=== PATIENT | male | born 1945 | race Caucasian/White ===

== ENCOUNTER 2021-07-31 10:31 | Inpatient (IN) | payer MEDICARE, OTHER ==
[~2021-07-31] VITALS: Ht 190.5 cm; Wt 77.1 kg
[2021-07-31 10:37] VITALS: BP 113/92
[2021-07-31] MEDS ORDERED: ADVAIR HFA 230M12 GM INH (10:41)
[2021-07-31] MEDS ORDERED: MEDROL4 M1 PO (10:42)
[2021-07-31] MEDS ORDERED: VENTOLIN HFA 1818 GM INH (10:42)
[2021-07-31] MEDS ORDERED: COZAAR 25 MG TA25 M2 PO (10:42)
[2021-07-31] MEDS ORDERED: DOXYCYCLINE 10100 MG PO (10:43)
[2021-07-31] MEDS ORDERED: VITAMIN B-1100 M2 PO (10:43)
[2021-07-31] MEDS ORDERED: C-10001000 MG PO (10:44)
[2021-07-31] MEDS ORDERED: ZINC SULFATE PO (10:44)
[2021-07-31 11:13] LABS: ABSOLUTE BASOPHILS 0.2 thou/uL (0.0-0.2); ABSOLUTE EOSINOPHILS 0.1 thou/uL (0.0-0.7); ABSOLUTE LYMPHOCYTES 2.7 thou/uL (0.8-5.3); ABSOLUTE MONOCYTES 1.1 thou/uL (0.0-1.2); ABSOLUTE NEUTROPHILS 8.6 thou/uL (1.6-8.1); BASOPHILS 1.3 %; EOSINOPHILS 0.9 %; HEMATOCRIT 47.2 % (42.0-52.0); HEMOGLOBIN 16.3 gm/dL (14.0-18.0); LYMPHOCYTES 21.1 %; MCH 31.1 pg (26.0-34.0); MCHC 34.6 g/dL (28.0-37.0); MCV 89.8 fL (80.0-100.0); MONOCYTES 8.6 %; NUCLEATED RBCS 0 /100WBC; PLATELET COUNT* 212 thou/uL (150-400); POLYS 68.1 %; RBC 5.25 mil/uL (4.50-6.00); RDW-CV 14.7 % (10.5-14.5); WBC 12.7 thou/uL (4.0-11.0)
[2021-07-31 11:31] LABS: CALCIUM 9.9 mg/dL (8.5-10.1); CREATININE 1.7 mg/dL (0.6-1.3); POTASSIUM 3.9 mmol/L (3.5-5.1)
[2021-07-31 11:47] LABS: TOTAL PROTEIN 8.1 g/dL (6.4-8.2)
--- NOTE | 2021-07-31 14:37 | EKG ---
[place] [address] ELECTROCARDIOGRAM REPORT Name: REEMA MEIER Room: [place] [address] ADM IN [facility].#: [id number] Admission: 07/31/21 Attend Phys: Beny Nova, Discharge: Date of : 41 Date of Service: 07/31/21 [facility] Report #: [id number] THIS REPORT FOR: //name// [facility] ED Test Date: 2021-07-31 Test Time: 10:37:44 Pat Name: REEMA MEIER Department: Room: [facility] Gender: M Plasticator: KUSHAL : 1945 Requested By: Oz Feliciano Order Number: [id number] MD: Dell Buenrostro Measurements Intervals [place] Rate: 81 P: AL: QRS: 56 QRSD: 100 T: 163 QT: 407 QTc: 473 Interpretive Statements Atrial fibrillation Borderline repolarization abnormality Baseline wander in lead(s) II,III,aVF No previous ECG available for comparison Electronically Signed On 07-31-2021 14:37:08 CDT by Dell Buenrostro [email or web address] <ELECTRONICALLY SIGNED> By: Dell Buenrostro MD, [facility] 07/31/21 1437 1037 1037 Dell Buenrostro MD, [facility] /EPI
[2021-07-31 16:04] VITALS: BP 112/70
--- NOTE | 2021-07-31 18:55 | NUR ---
PT TRANSFERRED FROM ER AT APPROX 1717. REPORT GIVEN FROM MARISEL. ASSESSMENT REVIEWED AND AGREED WITH. PT IS A&O X 2-4 AT TIMES AND HAS BEEN NOTED BY FAMILY TO HAVE GREATER CONFUSION, ESPECIALLY AT NIGHT. PER DAUGHTER PT SUNDOWNS FREQUENTLY AND AT TIMES CAN BE MEAN AND CUSS AT OTHERS. DAUGHTER ANSWERED MOST QUESTIONS AND PT WAS GETTING IRRITATED OVER THE MULTIPLE QUESTIONS BEING ASKED. PT INFORMED OF NEED TO USE CALL LIGHT TO GET UP AND WAS REMINDED THE REST OF THE SHIFT. SAFETY MEASURES IN PLACE. PT IS CONTINENT OF B&B. NS INFUSING AT 100MLS/HR. PT WITH NO COMPLAINTS OR CONCERNS VOICED AT THIS TIME.
[2021-07-31 20:00] VITALS: BP 96/62
[2021-08-01 02:39] VITALS: BP 100/60
[2021-08-01 03:40] VITALS: BP 97/57
[2021-08-01 08:03] LABS: ABSOLUTE EOSINOPHILS 0.1 thou/uL (0.0-0.7); ABSOLUTE LYMPHOCYTES 1.9 thou/uL (0.8-5.3); ABSOLUTE MONOCYTES 0.5 thou/uL (0.0-1.2); ABSOLUTE NEUTROPHILS 5.2 thou/uL (1.6-8.1); BASOPHILS 0.3 %; EOSINOPHILS 1.4 %; HEMATOCRIT 41.6 % (42.0-52.0); LYMPHOCYTES 24.7 %; MCH 30.6 pg (26.0-34.0); MCHC 33.6 g/dL (28.0-37.0); MCV 90.9 fL (80.0-100.0); MONOCYTES 6.7 %; MPV 8.9 fl. (7.2-11.1); NUCLEATED RBCS 0 /100WBC; PLATELET COUNT* 148 thou/uL (150-400); POLYS 66.9 %; RBC 4.58 mil/uL (4.50-6.00); RDW-CV 14.2 % (10.5-14.5); WBC 7.9 thou/uL (4.0-11.0)
[2021-08-01 08:20] VITALS: BP 102/65
[2021-08-01 08:23] LABS: CALCIUM 8.3 mg/dL (8.5-10.1); CREATININE 1.4 mg/dL (0.6-1.3); POTASSIUM 3.6 mmol/L (3.5-5.1)
[2021-08-01 12:00] VITALS: BP 108/57
[2021-08-01 16:00] VITALS: BP 108/65
[2021-08-01 19:50] VITALS: BP 94/56
[2021-08-02] VITALS: BP 97/65
--- NOTE | 2021-08-02 05:16 | NUR ---
PATIENT RESPONSIVE TO CARES BUT QUITE GRUMPY AT TIMES AND IS UNHAPPY ABOUT BEING IN THE HOSPITIAL. VITAL SIGNS STABLE. MEDS/ANTIBIOTICS PER ORDER. FALL PRECAUTIONS IN PLACE. CONTINUE TO MONITOR.
[2021-08-02 08:00] VITALS: BP 97/61
[2021-08-02 12:00] VITALS: BP 109/66
[2021-08-02 14:00] LABS: HEMATOCRIT 37.1 % (42.0-52.0); HEMOGLOBIN 12.6 gm/dL (14.0-18.0); MCH 31.2 pg (26.0-34.0); MCV 91.5 fL (80.0-100.0); MPV 9.2 fl. (7.2-11.1); NUCLEATED RBCS 0 /100WBC; PLATELET COUNT* 105 thou/uL (150-400); RBC 4.06 mil/uL (4.50-6.00); RDW-CV 14.3 % (10.5-14.5); WBC 8.9 thou/uL (4.0-11.0)
[2021-08-02 14:10] LABS: ALBUMIN 3.1 g/dL (3.4-5.0); CALCIUM 8.8 mg/dL (8.5-10.1); CREATININE 1.1 mg/dL (0.6-1.3); POTASSIUM 4.1 mmol/L (3.5-5.1); TOTAL BILIRUBIN 1.2 mg/dL (<0.1-1.0); TOTAL PROTEIN 6.1 g/dL (6.4-8.2)
[2021-08-02 14:38] LABS: ABSOLUTE LYMPHOCYTES 0.8 thou/uL (0.8-5.3); ABSOLUTE MONOCYTES 0.4 thou/uL (0.0-1.2); ABSOLUTE NEUTROPHILS 7.7 thou/uL (1.6-8.1); PLATELET ESTIMATE ADEQUATE
[2021-08-02 16:00] VITALS: BP 107/70
[2021-08-02 19:58] VITALS: BP 85/54
[2021-08-03] VITALS: BP 111/76
[2021-08-03 04:00] VITALS: BP 110/66
--- NOTE | 2021-08-03 05:36 | NUR ---
PATIENT HAS REMAINED ALERT AND ORIENTED X 3-4, RESTING QUIETLY ON HOURLY ROUNDS. TURNING SELF. INCONT URINE AT TIMES. SL FOR ABX. FALL PRECAUTIONS IN PLACE. VITAL SIGNS STABLE ON O2 AT 4L/MIN WITH BP SOFT. MRI OF HEAD PLANNED FOR TODAY. CONTINUE TO MONITOR.
[2021-08-03 08:00] VITALS: BP 126/84
[2021-08-03 12:00] VITALS: BP 102/52
--- NOTE | 2021-08-03 14:45 | 2DMMODE ---
[place] [address] 2 D/M-MODE ECHOCARDIOGRAM Name: REEMA MEIER Room: [address] IN [facility]#: [id number] Admission: 07/31/21 Attend Phys: Beny Nova, Discharge: Date of : 41 Date of Service: 08/03/21 1445 Report #: [id number] THIS REPORT FOR: cc: FAM - No family physician/PCP FAM - No family physician/PCP Dell Buenrostro MD [facility] ~ APPROVED REPORT Study performed: 08/03/2021 11:04:05 EXAM: Comprehensive 2D, Doppler, and color-flow Echocardiogram Patient Location: In-Patient Room #: [facility] Status: routine BSA: 2.05 HR: 79 bpm BP: 110/66 mmHg Rhythm: NSR Other Information Study Quality: Good Indications Atrial Fibrillation Dyspnea 2D Dimensions IVSd: 11.15 (7-11mm) LVOT Diam: 21.27 (18-24mm) LVDd: 45.30 mm PWd: 10.24 (7-11mm) Ascending Ao: 37.03 (22-36mm) LVDs: 24.16 (25-40mm) Aortic Root: 40.42 mm Volumes Left Atrial Volume (Systole) LA ESV Index: 42.00 mL/m2 Aortic Valve AoV Peak Sd.: 1.14 m/s AO Peak Gr.: 5.17 mmHg LVOT Max P.90 mmHg AO Mean Gr.: 3.52 mmHg LVOT Mean P.46 mmHg LVOT Max V: 0.99 m/s AO V2 VTI: 22.87 cm LVOT Mean V: 0.75 m/s BING (VTI): 2.76 cm2 LVOT V1 VTI: 17.76 [place] [address] 2 D/M-MODE ECHOCARDIOGRAM Name: REEMA MEIER Room: [address] IN [facility]#: [id number] Admission: 07/31/21 Attend Phys: Beny Nova, Discharge: Date of : 41 Date of Service: 08/03/21 1445 Report #: [id number] AI [place]: 1.07 m/s2 AI PHT: 907.49 ms TDI Lateral E' Sd.: 0.12 m/s Pulmonary Valve PV Peak Sd.: 0.92 m/s PV Peak Gr.: 3.39 mmHg Tricuspid Valve RAP Estimate: 5.00 mmHg TR Peak Gr.: 23.43 mmHg RVSP: 28.00 mmHg PA Pressure: 28.00 mmHg Left Ventricle The left ventricle is normal size. There is normal LV segmental wall motion. There is normal left ventricular wall thickness. Left ventricular systolic function is normal. The left ventricular ejection fraction is within the normal range. LVEF is 65-70%. This study is not technically sufficient to allow evaluation of the LV diastolic function due to atrial fibrillation. Right Ventricle The right ventricle is normal size. The right ventricular systolic function is normal. Pacemaker lead is present in the right ventricle. Atria Left atrium is moderately dilated. The right atrium size is normal. Aortic Valve The aortic valve is normal in structure. Trace aortic regurgitation. There is no aortic valvular stenosis. Mitral Valve The mitral valve is normal in structure. Trace mitral regurgitation. No evidence of mitral valve stenosis. Tricuspid Valve The tricuspid valve is normal in structure. Mild tricuspid regurgitation. No pulmonary hypertension. Pulmonic Valve The pulmonary valve is normal in structure. Trace [place] [address] 2 D/M-MODE ECHOCARDIOGRAM Name: REEMA MEIER Room: [address]#: [id number] Admission: 07/31/21 Attend Phys: Beny Nova, Discharge: Date of : 41 Date of Service: 08/03/21 1445 Report #: [id number] Great Vessels The aortic root is normal in size. IVC is not well visualized. Pericardium There is no pericardial effusion. <Conclusion> LVEF is 65-70%. Left atrium is moderately dilated. <ELECTRONICALLY SIGNED> By: Dell Buenrostro MD, [facility] 08/03/21 1445 1445 1445 Dell Buenrostro MD, FAC /INF
[2021-08-03 16:00] VITALS: BP 99/55
--- NOTE | 2021-08-03 18:34 | NUR ---
PT VERY UPSET THIS AM DUE TO NOT BEING ABLE TO GO HOME. PT ATE HIS BREAFAST HIS DAUGHTER BROUGHT IN FOR HIM. VSS AFEBRILE. PT UP TO THE CHAIR FOR A COUPLE OF HOURS. THEN BACK TOP BED. DAUGHTER MADE A DEAL WITH THE PATIENT SAYING SHE WILL TAKE HIM HOME, AFTER HER SURGERY AND IF HE GETS STRONGER AT REHAB AND DOES WHAT EVERYONE TELLS HIM TO DO. UA SENT TO LAB THIS PM. VSS AFEBRILE. HEART MONITOR READS AFIB WILL CONTINUE TO MONITOR PLAN OF CARE.
[2021-08-03 20:00] VITALS: BP 101/49
[2021-08-03 21:03] LABS: URINE BILIRUBIN NEGATIVE (Negative); URINE BLOOD NEGATIVE (Negative); URINE CLARITY CLEAR; URINE COLOR YELLOW; URINE GLUCOSE-RANDOM NEGATIVE (Negative); URINE KETONES NEGATIVE (Negative); URINE LEUKOCYTES-REFLEX 1+ (Negative); URINE NITRITE-REFLEX NEGATIVE (Negative); URINE PROTEIN NEGATIVE (Negative); URINE SPECIFIC GRAVITY >= 1.030 (1.005-1.030); URINE UROBILINOGEN 0.2 E.U./dl (0.2-1.0)
[2021-08-03 21:11] LABS: BACTERIA-REFLEX 1-9 Few /HPF (None Seen); SQUAMOUS 0-3 Few /LPF (0-3); URINE RBC 0-2 Rare /HPF (0-2); URINE WBC-REFLEX 6-15 Few /HPF (0-5)
[2021-08-03 21:12] LABS: CALCIUM OXALATE 0-3 Few /LPF (None Seen); CASTS None Seen /LPF (None Seen)
[2021-08-04] VITALS: BP 125/64
[2021-08-04 04:00] VITALS: BP 113/61
--- NOTE | 2021-08-04 06:01 | NUR ---
PATIENT SLEPT WELL DURING THIS SHIFT. PT ON O2 @ 4 LITERS PER NC. PT INCONTINENT OF URINE AT TIMES PLUS USES URINAL. PT SALINE LOCKED. 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 PT DENIES NEEDS AT THIS TIME. FREQUENTLY USED ITEMS AND CALL LIGHT WITHIN REACH. SIDERAILS UPX3 AND BED ALARM ON. WILL CONTINUE TO MONITOR.
[2021-08-04 08:00] VITALS: BP 154/90
[2021-08-04 12:00] VITALS: BP 95/49
[2021-08-04 16:00] VITALS: BP 113/56
--- NOTE | 2021-08-04 16:33 | NUR ---
CM COMPLETED THE ASSESSMENT WITH THE PT. PT INDICATED HE LIVES IN [place] AND IS HERE STAYING WITH DTR TEMP. PT PLANS TO RTRN HOME TO [place]. PT HAS WALKER. PT DENIES HX WITH HH OR SNF. PT IS TRANSFERRING TO ARU BED 324 TODAY PER TOSHIA. RN NOTIFIED OF ROOM AND TIME.
--- NOTE | 2021-08-04 17:21 | NUR ---
pt discharged to [facility] rehab unit. saline lock was removed hub intact.
== END 2021-08-04 18:00 | DRG 177 ==
LOC: M.ERS 10:31 → M.2W 13:06 → M.TBA-ER 13:06 → M.2W 16:43
PROVIDERS: Emergency Medicine Emergency Medical Services; ADMIT Internal Medicine; ATTEND Internal Medicine
DX: J15.6 Pneumonia due to other Gram-negative bacteria (principal); J96.01 Acute respiratory failure with hypoxia; G92 Toxic encephalopathy; N17.0 Acute kidney failure with tubular necrosis; F02.81 Dementia in other diseases classified elsewhere, unspecified severity, with behavioral disturbance; Z20.822 Contact with and (suspected) exposure to COVID-19; I10 Essential (primary) hypertension; G30.9 Alzheimer's disease, unspecified; I25.10 Atherosclerotic heart disease of native coronary artery without angina pectoris; Z95.0 Presence of cardiac pacemaker; Z86.16 Personal history of COVID-19; Z95.5 Presence of coronary angioplasty implant and graft; Z95.1 Presence of aortocoronary bypass graft; E86.0 Dehydration

== ENCOUNTER 2021-08-04 16:25 | Inpatient (IN) | payer MEDICARE, OTHER ==
[~2021-08-04] VITALS: Ht 188 cm; Wt 102.4 kg
[~2021-08-04 16:25] MED LIST: ADVAIR HFA 230M12 GM INH; C-10001000 MG PO; COZAAR 25 MG TA25 M2 PO; DOXYCYCLINE 10100 MG PO; MEDROL4 M1 PO; VENTOLIN HFA 1818 GM INH; VITAMIN B-1100 M2 PO; ZINC SULFATE PO
[2021-08-04 19:00] VITALS: BP 104/65
--- NOTE | 2021-08-04 20:40 | NUR ---
REHAB ADMISSION HISTORY/ASSESSMENT COMPLETED. PATIENT VERY HATEFUL, SARCASTIC AND ARGUMENATIVE. ANGRY ABOUT BEING IN THE HOSPITAL. 02 NASAL CANNULA AT 2 LITERS. DISCOLORATION NOTED TO LOWER EXTREMITIES. NO OPEN AREAS OBSERVED. DENIES PAIN. TOOK MEDICATION WHOLE WITH WATER. SNACK RPOVIDED. CALL LIGHT AND URINAL WITHIN REACH.
--- NOTE | 2021-08-05 05:36 | NUR ---
RESTED QUIETLY. HOURLY ROUNDING IN PROGRESS.
[2021-08-05 05:44] LABS: HEMATOCRIT 33.8 % (42.0-52.0); MCH 31.5 pg (26.0-34.0); MCHC 35.5 g/dL (28.0-37.0); MCV 88.8 fL (80.0-100.0); MPV 9.6 fl. (7.2-11.1); RBC 3.81 mil/uL (4.50-6.00); RDW-CV 14.9 % (10.5-14.5); WBC 5.3 thou/uL (4.0-11.0)
[2021-08-05 06:02] LABS: CALCIUM 8.5 mg/dL (8.5-10.1); CREATININE 0.8 mg/dL (0.6-1.3); POTASSIUM 3.5 mmol/L (3.5-5.1)
[2021-08-05 08:00] VITALS: BP 135/83
--- NOTE | 2021-08-05 17:05 | NUR ---
AM ASSESSMENT AND VITAL SIGNS COMPLETED DOCUMENTED. PT WAS VERY UMCOOPERATIVE THIS MORNING, REFUSED TO HAVE THE BED OR CHAIR ALARM AND WAS VERY ARGUMENTATIVE AND SARCASTIC. PT'S DAUGHTER CAME IN EARLY THIS AFTERNOON AND WAS ABLE TO CALM HIM DOWN. PT HAS ADVANCED DEMENTIA AND THIS IS NORMAL BEHAVIOR FOR HIM. FREQUENT OBSERVATION FOR SAFETY.
[2021-08-05 19:00] VITALS: BP 92/48
--- NOTE | 2021-08-06 05:20 | NUR ---
Oriented x 2-3, very quiet. He is withdrawn. He takes his meds without difficulty. Vitals are stable. Denies pain. He has slept well.
[2021-08-06 07:51] VITALS: BP 136/71
[2021-08-06 11:51] LABS: URINE BILIRUBIN NEGATIVE (Negative); URINE BLOOD NEGATIVE (Negative); URINE CLARITY CLEAR; URINE COLOR YELLOW; URINE GLUCOSE-RANDOM NEGATIVE (Negative); URINE KETONES NEGATIVE (Negative); URINE LEUKOCYTES-REFLEX 1+ (Negative); URINE NITRITE-REFLEX NEGATIVE (Negative); URINE PROTEIN NEGATIVE (Negative); URINE SPECIFIC GRAVITY 1.025 (1.005-1.030); URINE UROBILINOGEN 0.2 E.U./dl (0.2-1.0)
[2021-08-06 11:56] LABS: BACTERIA-REFLEX 1-9 Few /HPF (None Seen); SQUAMOUS 0-3 Few /LPF (0-3); URINE RBC 0-2 Rare /HPF (0-2); URINE WBC-REFLEX 6-15 Few /HPF (0-5)
[2021-08-06 11:57] LABS: CASTS None Seen /LPF (None Seen); CRYSTALS None Seen /LPF (None Seen); MUCUS 0-3 Light strn/LPF (None Seen)
--- NOTE | 2021-08-06 13:04 | NUR ---
Nutrition: Pt admitted to rehab with encephalopathy. H/o recent COVID, possible dementia. Consult received for "recent wt loss d/t hospitaliztion." Spoke with pt and family today. Pt ate good BKFST and lunch. He said he lost about 50# recently, but is slowly gaining wt again. Current wt is 225#. Eating regular diet. Doesn't like the food and is having outside food brought in. Albumin 3.1. RD gave pt a menu for alternative ordering - family appreciative. GOALS: no wt loss >2% from 225#, continue good po intake. RD will follow weekly on rehab unit. Mild to low risk.
--- NOTE | 2021-08-06 16:38 | NUR ---
PT UP WITH GAIT BELT AND WALKER. PT DID COMPLETE ALL THERAPY TODAY. DID COLLECT AND SEND UA TO LAB WAITING ON CULTURE. PT COMPLAINED THAT BOTTOM WAS SORE THERE IS A RED AREA, BARRIER CREAM WAS APPLIED, TRIED KEEPING PT ON SIDE. PT HAD COMPLAINT OF HEARTBURN THIS AM AND WAS GIVEN MED, HEARTBURN WAS RESOLVED. DAUGHTER HERE TODAY ASKING ABOUT MRI THAT THE PT REFUSED BEFORE COMING TO REHAB, DR. LACEY WAS CALLED, SPOKE TO THIAGO @ 9:50AM. PT IS RESTING WITH DAUGHTER AT BEDSIDE AND CALL LIGHT IN REACH. FALL PRECAUTIONS IN PLACE.
[2021-08-06 20:12] VITALS: BP 90/53
[2021-08-07 07:46] VITALS: BP 118/75
--- NOTE | 2021-08-07 16:28 | NUR ---
INITIAL ASSESSMENT: PATIENT ADMITTED TO THE [facility] ON 08/04/21 WITH A DIAGNOSIS OF ENCEPHALOPATHY. PT'S DTR ASSIST WITH ASSESSMENT AND INFORMS THAT SHE HAD RECENTLY BROUGHT PT TO HER HOME HERE IN [place] FROM [place]. PREVIOUSLY PT RESIDED AT HOME ALONE IN [place], AND SHE ASSUMES HE HAD TAKEN CARE OF HIMSELF INDEPENDENTLY. SHE REALLY DOESN'T KNOW THEY WERE ASTRANGED. PT USED A WALKER OR CANE FOR MOBILITY. PT HAS 0 HX OF HH OR SNF. CM ORIENTED PT AND DTR TO THE [facility] AND PROCESSES, RESIDENT'S RIGHTS INFO, TEAM CONFRENCE, AND TO THE ROLE OF CM. CM WILL REMAIN AVAILABLE TO ASSIST AND FOLLOW NEEDED.
--- NOTE | 2021-08-07 16:40 | NUR ---
PT WORKED WITH THERAPIES. UP WITH GAIT BELT AND STB ASSIST. REFUSES TO USE WALKER OR CANE. PT VERY IRRITABLE. O2 2L NC. REFUSED PRN MOM TO ASSIST WITH HAVING A STOOL. SPOKE WITH PT'S DAUGHTER, ARMAAN TO GET PACEMAKER INFO. MOLLY IN MRI GIVEN THE PACEMAKER INFO TO CONTACT PT'S RESEARCH EPIDEMIOLOGIST AND PACEMAKER REP FOR MRI. POSSIBLY HAVING MRI ON TUESDAY IF REP IS ABLE TO COME. PACEMAKER PLACED BY DR JACINTO WEST IN [place]. PACE MAKER IS AN [employer]. MODEL NUMBER [id number]. WAS PLACED ON Oct. DENIES PAIN. CALL LIGHT IN REACH. FALL PRECAUTIONS IN PLACE.
[2021-08-07 19:45] VITALS: BP 111/64
[2021-08-08 08:25] VITALS: BP 123/73
--- NOTE | 2021-08-08 17:29 | NUR ---
pt is up with gait belt and walker.pt did have and complete therapy today. pt is on 2L , rt put a humidifier on due to pt having a dry bloody nose. and daughter stated he had one down stairs and it helped. pt did have bm today. pt is set up for MRI Tuesday,daughter brought in his pacemaker card, a copy is has been put in chart. pt is resting with call light in reach and fall precautions in place.
[2021-08-08 20:00] VITALS: BP 86/48
--- NOTE | 2021-08-09 04:40 | NUR ---
ASSUMED PT CARE AT 1930. PT ALERT AND ORIENTED, ALREADY IN BED AT SHIFT CHANGE. DENIES PAIN. TAKES PILLS WHOLE WITH WATER. ON 2L 02 PER NC. TURNED SELF IN BED. Z GUARD TO REDNESS ON BOTTOM. SLEPT WELL OVERNIGHT. NO STOOL THIS SHIFT. CALL LIGHT IN REACH, BED ALARM ON FOR SAFETY. HOURLY ROUNDING IN PROGRESS, WILL CONTINUE TO MONITOR.
[2021-08-09 08:04] VITALS: BP 132/70
[2021-08-09 20:00] VITALS: BP 118/78
[2021-08-10 03:55] LABS: HEMATOCRIT 31.4 % (42.0-52.0); HEMOGLOBIN 10.8 gm/dL (14.0-18.0); MCH 31.1 pg (26.0-34.0); MCHC 34.5 g/dL (28.0-37.0); MPV 8.7 fl. (7.2-11.1); RBC 3.48 mil/uL (4.50-6.00); RDW-CV 15.3 % (10.5-14.5); WBC 4.9 thou/uL (4.0-11.0)
--- NOTE | 2021-08-10 04:20 | NUR ---
ASSUMED PT CARE AT 1930. PT ALERT AND ORIENTED, IN BED AT SHIFT CHANGE. DENIES PAIN. TAKES PILLS WHOLE WITH WATER WITHOUT DIFFICULTY. ON 2L 02 PER NC. TURNED SELF IN BED. IV ANTIBIOTICS INFUSED WITHOUT DIFFICULTY TO RIGHT UPPER ARM ACCESS. SLEPT WELL OVERNIGHT. NO STOOL THIS SHIFT. CALL LIGHT IN REACH, BED ALARM ON FOR SAFETY. HOURLY ROUNDING IN PROGRESS, WILL CONTINUE TO MONITOR.
[2021-08-10 04:33] LABS: CALCIUM 8.5 mg/dL (8.5-10.1); CREATININE 0.9 mg/dL (0.6-1.3); POTASSIUM 4.1 mmol/L (3.5-5.1)
[2021-08-10 08:30] VITALS: BP 127/63
--- NOTE | 2021-08-10 17:59 | NUR ---
ALERT AND ORIENTED X4. UP WITH 1 ASSIST, GAIT BELT AND WALKER. DENIES PAIN. O2 SAT TAPERED OFF AND PATIENT ABLE TO DO THERAPIES AND ABLE TO KEEP O2 SATS IN 90S ON ROOM AIR. ID TALKED WITH PATIENT AND NEW ORDER TO CHANGE ANTIBIODIC. ON ISOLATION FOR ESBL IN URINE. PATIENT AND DAUGHTER DID NOT WANT MRI DONE UNTIL THEY TALK WITH NEUROLOGY AGAIN. USES CALL LIGHT FOR ASSIST. FALL PRECAUTIONS IN PLACE.
[2021-08-10 19:00] VITALS: BP 124/75
--- NOTE | 2021-08-11 05:36 | NUR ---
ASSUMED PT CARE FROM RADHA BRUCE RN, AT 2100. AGREE WITH HER PREVIOUS ASSESSMENT. PT ALERT AND ORIENTED X4. DENIES PAIN. PT ON ISOLATION FOR ESBL IN URINE. PATIENT AND DAUGHTER DO NOT WANT MRI DONE UNTIL THEY TALK AGAIN WITH NEUROLOGY. PT UP TO BATHROOM WITH GAITBELT AND STANDBY ASSIST TO VOID. PT AWAKE IN THE NIGHT WORRYING ABOUT HIS CAR AND STORAGE UNITS IN [place]. CALL LIGHT IN REACH, BED ALARM ON FOR SAFETY. HOURLY ROUNDING IN PROGRESS, WILL CONTINUE TO MONITOR.
[2021-08-11 08:56] VITALS: BP 133/84
--- NOTE | 2021-08-11 16:47 | NUR ---
CM SPOKE TO THE PT AND HIS DTR TO DISCUSS ANY QUESTIONS OR CONCERNS THAT THEY MAY HAVE FOR THIS WEEKS TEAM CONFRENCE MEETING. PT QUESTIONS 'WHEN WILL I GET TO GO HOME'. PT'S DTR QUESTIONS 'CAN HE RETURN HOME INDEPENDENTLY AND WHAT WILL BE THE RECOMMENDATION IF HE CANT?'. PT'S DTR INFORMS THAT THE PT CAN COME LIVE WITH HER AT D/C IF NEEDED. CM WILL REMAIN AVAILABLE TO ASSIST AND FOLLOW NEEDED.
--- NOTE | 2021-08-11 17:05 | NUR ---
PT YOU WITH GAIT BELT AND WALKER. PT DID COMPLETED ALL THERAPY . PT HAS IV TO RT UPPER ARM. PT HAD NO COMPLAINTS OF PAIN. PT IS NO LONGER USING 02 AND AT 97% ON RM. PT IS ON CONTACT ISO FOR ESPL. PT IS RESTING WITH CALL LIGHT IN REACH AND FALL PRECAUTIONS IN PLACE.
[2021-08-11 19:00] VITALS: BP 115/68
--- NOTE | 2021-08-12 05:20 | NUR ---
ASSUMED CARES AT 1920. ALERT AND ORIENTED. DENIED ANY PAIN. ISOLATION FOR ESBL. SLEPT WELL. CALL LIGHT IN REACH AND BED ALARM ON.
[2021-08-12 05:23] LABS: CALCIUM 8.7 mg/dL (8.5-10.1); CREATININE 0.8 mg/dL (0.6-1.3); POTASSIUM 4.1 mmol/L (3.5-5.1)
[2021-08-12 05:27] LABS: HEMATOCRIT 31.5 % (42.0-52.0); MCH 31.4 pg (26.0-34.0); MCHC 34.9 g/dL (28.0-37.0); MPV 8.3 fl. (7.2-11.1); RBC 3.49 mil/uL (4.50-6.00); RDW-CV 15.4 % (10.5-14.5); WBC 4.2 thou/uL (4.0-11.0)
[2021-08-12 07:47] VITALS: BP 130/84
--- NOTE | 2021-08-12 13:02 | NUR ---
Case and plan of care reviewed with MD each Wed. during patient's length of stay. Therapies report pt ready to discharge but cognitively will require 24/7 supervision. Dtr in room when Dr Odonnell rounded and plan is for pt to come live with her. CM screened for Dc needs, none identified. None identified in team meeting.
[2021-08-12] MEDS ORDERED: LEVOFLOXACIN500 MG PO (13:23)
[2021-08-12 13:33] VITALS: BP 130/84
--- NOTE | 2021-08-12 14:53 | NUR ---
AM ASSESSMENT AND VITAL SIGNS COMPLETED DOCUMENTED. PT COMPLETED TODAY'S THERAPIES AND HAS MET HIS DISCHARGE GOALS. DISCHARGE INSTRUCTIONS DISCUSSED WITH THE PATIENT AND HIS DAUGHTER, COPY PROVIDED FOR HOME. PATIENT AND HIS BELONGINGS TRANSPORTED TO THE EXIT VIA WHEELCHAIR, ASSISTED INTO CAR, DISCHARGED TO HIS DAUGHTER'S HOME IN STABLE CONDITION.
== END 2021-08-12 14:56 | disposition home or self-care (01) | DRG 91 ==
LOC: M.REH 16:25
PROVIDERS: Family Medicine; ADMIT Physical Medicine & Rehabilitation; ATTEND Physical Medicine & Rehabilitation
DX: G92 Toxic encephalopathy (principal); J96.01 Acute respiratory failure with hypoxia; J18.9 Pneumonia, unspecified organism; N17.0 Acute kidney failure with tubular necrosis; Z16.12 Extended spectrum beta lactamase (ESBL) resistance; B96.1 Klebsiella pneumoniae [K. pneumoniae] as the cause of diseases classified elsewhere; F03.90 Unspecified dementia, unspecified severity, without behavioral disturbance, psychotic disturbance, mood disturbance, and anxiety; I10 Essential (primary) hypertension; I25.10 Atherosclerotic heart disease of native coronary artery without angina pectoris; R30.0 Dysuria; Z95.0 Presence of cardiac pacemaker; Z95.5 Presence of coronary angioplasty implant and graft; Z82.49 Family history of ischemic heart disease and other diseases of the circulatory system; Z81.8 Family history of other mental and behavioral disorders; Z87.891 Personal history of nicotine dependence; Z85.46 Personal history of malignant neoplasm of prostate; Z86.73 Personal history of transient ischemic attack (TIA), and cerebral infarction without residual deficits